=== PATIENT | male | born 1985 | race Caucasian/White ===

== ENCOUNTER 2017-02-25 09:47 | Emergency (ER) | payer OTHER ==
[~2017-02-25] VITALS: Ht 167.6 cm; Wt 49.9 kg
[2017-02-25] MEDS ORDERED: ONDA4TAB6 SL (10:21)
[2017-02-25] MEDS ORDERED: OXYC15TA76 PO (10:21)
[2017-02-25] MEDS ORDERED: NS 1,000 ML IV ONE (10:45)
[2017-02-25] MEDS ORDERED: MORPHINE 4 MG/ML 1ML SYRINGE IV ONE (10:45)
[2017-02-25] MEDS ORDERED: ONDANSETRON 4MG/2ML VIAL (J2405) IV ONE (10:45)
[2017-02-25] MEDS ORDERED: GASTROGRAFIN SOLUTION 30ML (Q9963) PO ONE ×2 (11:00→11:30)
[2017-02-25 11:08] LABS: BASO % 0.3 % (0.0-1.0); EOS # 0.1 K/mm3 (0.0-0.50); LARGE UNSTAINED CELL # 0.1 K/mm3 (0.0-0.4); LARGE UNSTAINED CELL % 1.3 % (0.0-4.0); LYMPH # 2.1 K/mm3 (1.5-4.5); LYMPH % 20.5 % (24.0-44.0); MEAN CORPUSCULAR HEMOGLOBIN 31.2 pg (27.0-33.0); MEAN CORPUSCULAR HGB CONC 33.3 g/dl (32.0-36.5); MEAN CORPUSCULAR VOLUME 93.7 fl (80.0-96.0); MONO # 0.5 K/mm3 (0.0-0.8); MONO % 4.8 % (0.0-5.0); NEUTROPHILS # 7.2 K/mm3 (1.8-7.7); NEUTROPHILS % 72.1 % (36.0-66.0); PLATELET COUNT, AUTOMATED 171 k/mm3 (150-450); RED CELL DISTRIBUTION WIDTH 11.9 % (11.5-14.5)
[2017-02-25 11:18] LABS: ALBUMIN 3.6 GM/DL (3.2-5.2); ALBUMIN/GLOBULIN RATIO 1.13 (1.00-1.93); ALKALINE PHOSPHATASE 61 U/L (45-117); ALT/SGPT 15 U/L (12-78); AMYLASE 189 U/L (25-115); ANION GAP 5 MEQ/L (8-16); AST/SGOT 10 U/L (15-37); BILIRUBIN,DIRECT 0.1 MG/DL (0.0-0.2); BILIRUBIN,TOTAL 0.6 MG/DL (0.2-1.0); BLOOD UREA NITROGEN 10 MG/DL (7-18); CALCIUM LEVEL 8.8 MG/DL (8.5-10.1); CARBON DIOXIDE LEVEL 28 MEQ/L (21-32); CHLORIDE LEVEL 110 MEQ/L (98-107); CREATININE FOR GFR 1.09 MG/DL (0.70-1.30); GLOMERULAR FILTRATION RATE > 60.0 (>60); GLUCOSE, FASTING 82 MG/DL (70-105); POTASSIUM SERUM 4.1 MEQ/L (3.5-5.1); SODIUM LEVEL 143 MEQ/L (136-145); TOTAL PROTEIN 6.8 GM/DL (6.4-8.2)
[2017-02-25] MEDS ORDERED: HYDROmorphone HCL 1 MG/ML SYRINGE (J1170) IV ONE (12:15)
--- NOTE | 2017-02-25 13:17 | REP ---
CT ABDOMEN AND PELVIS WITHOUT CONTRAST: CT abdomen and pelvis performed without IV contrast but with oral contrast. Sagittal and coronal reconstruction images are performed. The visualized lung bases demonstrate no infiltrate. The liver, gallbladder, spleen, adrenals and pancreas are grossly unremarkable. Two tiny brenton like calcifications are seen in the left renal collecting system. There is no hydroureteronephrosis bilaterally. No bladder calculi are seen. There is no abdominal aortic aneurysm. No gross adenopathy is seen. No gross bowel wall thickening is seen. I do not see evidence of free air or free fluid. The urinary bladder is grossly unremarkable. IMPRESSION: Two tiny left intrarenal stones. No ureteral stones seen. No hydronephrosis. No evidence of appendicitis. No free air or free fluid. Signed by Marcos Mata MD 02/25/2017 07:49 P
[2017-02-25 13:31] VITALS: BP 97/62
--- NOTE | 2017-02-25 13:32 | ED PDOC ---
Post-Departure Follow-Up SPOKE WITH PT AND FAMILY REGARDING LAB/CT RESULTS. ADVISED LIKELY ACUTE PANCREATITIS AND CAN BE TREATED 2 WAYS. ADVISED SOME PT'S REQUIRE ADMISSION FOR IV FLUIDS AND NPO, OR PT COULD GO HOME ON CLEAR LIQUID DIET WITH PAIN/NAUSEA MEDS. PT AGREED TO BE SENT HOME AND UNDERSTANDS HE NEEDS TO BE ON A CLEAR LIQUID DIET FOR THE NEXT 2-3 DAYS, THEN MOVE TO A BRAT DIET FOR ANOTHER COUPLE DAYS. PT AND AGREE TO THIS PLAN AT THIS TIME AND VOICE UNDERSTANDING. PT STATES HE WILL RETURN TO THE ER IF SYMPTOMS ARE WORSENING. KAYLIE MOSLEY PA-C February 25, 2017 13:32
[2017-02-25] MEDS ORDERED: PERC5TAB6 PO (13:34)
[2017-02-25] MEDS ORDERED: ZOFR4TAB3 PO (13:34)
== END 2017-02-25 13:49 | disposition home or self-care (01) ==
LOC: M ED 10:44
DX: K85.90 Acute pancreatitis without necrosis or infection, unspecified (principal); N20.0 Calculus of kidney; Z79.891 Long term (current) use of opiate analgesic; Z79.899 Other long term (current) drug therapy; Z88.2 Allergy status to sulfonamides; Z88.8 Allergy status to other drugs, medicaments and biological substances; F17.200 Nicotine dependence, unspecified, uncomplicated; Z96.0 Presence of urogenital implants

== ENCOUNTER → 2019-04-08 | Outpatient (CLI) | payer OTHER ==
[~2019-04-08] MED LIST: ONDA4TAB6 SL; OXYC15TA76 PO; PERC5TAB12 PO; ZOFR4TAB14 PO
--- NOTE | 2019-04-08 12:09 | REP ---
Right hand four views: There are no comparisons. There is a fifth digit metacarpal stabilization plate. The metallic plate and screws are intact. There is no evidence of plate fracture. The fifth digit metacarpal is unremarkable. There is no fracture or dislocation. The fracture presumably stabilized by the metallic plate has healed in satisfactory position alignment. There are no calcifications or foreign bodies. Mineralization and joint spaces are normal. Impression: Fifth digit metacarpal stabilization plate without complication. Otherwise, negative right hand. Electronically Signed by Marcos Montoya MD 04/08/2019 12:00 P
== END ==
LOC: M LRY 11:12
PROVIDERS: ATTEND Physician Assistant Medical
DX: Z96.89 Presence of other specified functional implants (principal)

== ENCOUNTER → 2020-04-21 | Outpatient (REF) | payer OTHER ==
[~2020-04-21] MED LIST changes: +OXYC-1 PO; -OXYC15TA76 PO
== END ==
LOC: M LAB REF 10:46
PROVIDERS: ATTEND Dermatology
DX: Q82.5 Congenital non-neoplastic nevus (principal)

== ENCOUNTER → 2022-09-20 | Outpatient (CLI) | payer OTHER ==
[~2022-09-20] VITALS: Ht 167.6 cm; Wt 47.9 kg
[~2022-09-20] MED LIST changes: +ACYC1TAB PO; +FLON1SPR; +LEVO1TAB39 PO; +LORA-674 PO; +METH-1177 PO; +METH5TA PO; +NOXA1TAB PO; +OXYC10TA12 PO; +OXYC20TA2 PO; +PROA1AER2 INH; +[UNRECOGNIZED DRUG - CODE] PO
[2022-09-20 15:00] VITALS: BP 116/75
== END ==
LOC: M PAL 14:06
PROVIDERS: ATTEND Nurse Practitioner Adult Health
DX: C92.00 Acute myeloblastic leukemia, not having achieved remission (principal); Q87.19 Other congenital malformation syndromes predominantly associated with short stature; F90.9 Attention-deficit hyperactivity disorder, unspecified type; F41.9 Anxiety disorder, unspecified; F32.A Depression, unspecified; N20.9 Urinary calculus, unspecified; Z51.5 Encounter for palliative care; Z88.2 Allergy status to sulfonamides; Z88.8 Allergy status to other drugs, medicaments and biological substances; Z79.891 Long term (current) use of opiate analgesic; Z79.899 Other long term (current) drug therapy; Z79.51 Long term (current) use of inhaled steroids; G89.3 Neoplasm related pain (acute) (chronic); R53.83 Other fatigue; G47.00 Insomnia, unspecified; R63.0 Anorexia

== ENCOUNTER → 2022-09-21 | Outpatient (CLI) | payer OTHER ==
[~2022-09-21] MED LIST changes: -METH-1177 PO
== END ==
LOC: M LAB 11:03
PROVIDERS: ATTEND Nurse Practitioner
DX: Z01.83 Encounter for blood typing (principal)

== ENCOUNTER 2022-09-22 08:43 | Outpatient (CLI) | payer OTHER ==
[~2022-09-22] VITALS: Ht 167.6 cm; Wt 50.0 kg
[2022-09-22 09:02] VITALS: BP 115/62
[2022-09-22 09:22] VITALS: BP 115/62
[2022-09-22 09:45] VITALS: BP 101/57
[2022-09-22 10:45] VITALS: BP 102/57
[2022-09-22 11:30] VITALS: BP 110/63
[2022-09-22 12:55] VITALS: BP 108/62
== END 2022-09-22 12:55 | disposition home or self-care (01) ==
LOC: M INFU 08:43
PROVIDERS: ATTEND Nurse Practitioner
DX: C92.00 Acute myeloblastic leukemia, not having achieved remission (principal); Z88.2 Allergy status to sulfonamides; Z88.6 Allergy status to analgesic agent
CPT/HCPCS: 36430; P9034; P9040

== ENCOUNTER 2022-09-26 08:53 | Outpatient (CLI) | payer OTHER ==
[~2022-09-26] VITALS: Ht 167.6 cm; Wt 50.0 kg
[2022-09-26] VITALS (7 sets, daily range): BP systolic 99–118; BP diastolic 46–67
[2022-09-26 10:35] LABS: HEMATOCRIT 21.9 % (42.0-52.0); HEMOGLOBIN 7.8 g/dl (13.5-17.5); MEAN CORPUSCULAR HEMOGLOBIN 30.7 pg (27.0-33.0); MEAN CORPUSCULAR HGB CONC 35.6 g/dl (32.0-36.5); MEAN CORPUSCULAR VOLUME 86.2 fl (80.0-96.0); RED BLOOD COUNT 2.54 10^6/uL (4.30-6.10)
[2022-09-26 11:01] LABS: WHITE BLOOD COUNT 0.4 10^3/uL (4.0-10.0)
[2022-09-26 11:02] LABS: PLATELET COUNT, AUTOMATED 7 10^3/uL (150-450)
[2022-09-27] MEDS ORDERED: METH-1177 PO (11:46)
== END 2022-09-26 15:25 | disposition home or self-care (01) ==
LOC: M INFU 08:53
PROVIDERS: ATTEND Nurse Practitioner
DX: C92.00 Acute myeloblastic leukemia, not having achieved remission (principal); Z88.2 Allergy status to sulfonamides; Z88.6 Allergy status to analgesic agent
CPT/HCPCS: 36430; 85027; 85049; 85055; 86850; 86900; 86901; 86920; P9034; P9040

== ENCOUNTER → 2022-09-27 | Outpatient (CLI) | payer OTHER ==
[~2022-09-27] VITALS: Ht 167.6 cm; Wt 47.9 kg
[~2022-09-27] MED LIST changes: +METH-1177 PO
[2022-09-27 11:28] VITALS: BP 117/71
== END ==
LOC: M PAL 11:07
PROVIDERS: ATTEND Nurse Practitioner Adult Health
DX: C92.00 Acute myeloblastic leukemia, not having achieved remission (principal); Q87.19 Other congenital malformation syndromes predominantly associated with short stature; F90.9 Attention-deficit hyperactivity disorder, unspecified type; F41.9 Anxiety disorder, unspecified; F32.A Depression, unspecified; Z51.5 Encounter for palliative care; Z88.2 Allergy status to sulfonamides; Z88.8 Allergy status to other drugs, medicaments and biological substances; Z79.891 Long term (current) use of opiate analgesic; Z79.899 Other long term (current) drug therapy; Z79.51 Long term (current) use of inhaled steroids; G89.3 Neoplasm related pain (acute) (chronic); R53.83 Other fatigue; G47.00 Insomnia, unspecified; R63.0 Anorexia

== ENCOUNTER 2022-10-04 10:00 | Outpatient (CLI) | payer OTHER ==
[2022-10-04] VITALS (9 sets, daily range): BP systolic 98–126; BP diastolic 49–75
[~2022-10-04] VITALS: Ht 167.6 cm; Wt 48.1 kg
[2022-10-04 10:34] LABS: LYMPH # 0.3 10^3/uL (1.5-5.0); LYMPH % 62.3 % (24.0-44.0); MEAN CORPUSCULAR HEMOGLOBIN 29.9 pg (27.0-33.0); MEAN CORPUSCULAR HGB CONC 34.7 g/dl (32.0-36.5); MEAN CORPUSCULAR VOLUME 86.3 fl (80.0-96.0); MONO % 5.7 % (2.0-8.0); RED BLOOD COUNT 2.04 10^6/uL (4.30-6.10)
[2022-10-04 10:36] LABS: NEUTROPHILS # 0.2 10^3/uL (1.5-8.5)
[2022-10-04 10:37] LABS: HEMATOCRIT 17.6 % (42.0-52.0); HEMOGLOBIN 6.1 g/dl (13.5-17.5); WHITE BLOOD COUNT 0.5 10^3/uL (4.0-10.0)
[2022-10-04 10:38] LABS: PLATELET COUNT, AUTOMATED 2 10^3/uL (150-450)
[2022-10-04 11:09] LABS: ALKALINE PHOSPHATASE 89 U/L (46-116); ALT/SGPT 20 U/L (7.0-40); AST/SGOT 28 U/L (<34); BILIRUBIN,TOTAL 1.3 MG/DL (0.3-1.2); BLOOD UREA NITROGEN 14 MG/DL (9-23); CALCIUM LEVEL 9.4 MG/DL (8.5-10.1); CARBON DIOXIDE LEVEL 30 MMOL/L (20-31); CHLORIDE LEVEL 101 MMOL/L (98-107); CREATININE FOR GFR 1.04 MG/DL (0.70-1.30); GLOMERULAR FILTRATION RATE > 60.0 (>60); GLUCOSE, FASTING 154 MG/DL (60-100); LDH LACTATE DEHYDROGENASE 147 U/L (120-246); POTASSIUM SERUM 3.7 MMOL/L (3.5-5.1); SODIUM LEVEL 139 MMOL/L (136-145); TOTAL PROTEIN 6.1 G/DL (5.7-8.2)
[2022-10-04 14:30] LABS: PLATELET COUNT, AUTOMATED 45 10^3/uL (150-450)
== END 2022-10-04 17:28 | disposition home or self-care (01) ==
LOC: M INFU 10:00
DX: C92.00 Acute myeloblastic leukemia, not having achieved remission (principal); Z88.2 Allergy status to sulfonamides
CPT/HCPCS: 36415; 36430; 80053; 83615; 85025; 85027; 85049; 85055; 86850; 86900; 86901; 86920; 87040; P9016; P9034

== ENCOUNTER → 2022-10-04 | Outpatient (CLI) | payer OTHER ==
[~2022-10-04] VITALS: Ht 167.6 cm; Wt 47.3 kg
[2022-10-04 09:08] VITALS: BP 109/68
== END ==
LOC: M PAL 09:03
PROVIDERS: ATTEND Nurse Practitioner Adult Health
DX: C92.00 Acute myeloblastic leukemia, not having achieved remission (principal); F32.A Depression, unspecified; G89.3 Neoplasm related pain (acute) (chronic); F41.9 Anxiety disorder, unspecified; Q87.19 Other congenital malformation syndromes predominantly associated with short stature; N20.0 Calculus of kidney; R53.83 Other fatigue; R11.0 Nausea; R63.0 Anorexia; R07.9 Chest pain, unspecified; Z88.2 Allergy status to sulfonamides; Z88.6 Allergy status to analgesic agent; Z79.891 Long term (current) use of opiate analgesic; Z79.899 Other long term (current) drug therapy; Z79.51 Long term (current) use of inhaled steroids; Z51.5 Encounter for palliative care; Z92.21 Personal history of antineoplastic chemotherapy; Z87.891 Personal history of nicotine dependence

== ENCOUNTER → 2022-10-06 | Outpatient (CLI) | payer OTHER ==
[2022-10-06 11:15] LABS: HEMATOCRIT 22.4 % (42.0-52.0); HEMOGLOBIN 7.5 g/dl (13.5-17.5); LYMPH # 0.3 10^3/uL (1.5-5.0); MEAN CORPUSCULAR HEMOGLOBIN 29.1 pg (27.0-33.0); MEAN CORPUSCULAR HGB CONC 33.5 g/dl (32.0-36.5); MEAN CORPUSCULAR VOLUME 86.8 fl (80.0-96.0); MONO # 0.1 10^3/uL (0.0-0.8); MONO % 14.7 % (2.0-8.0); NEUTROPHILS % 35.3 % (36.0-66.0); RED BLOOD COUNT 2.58 10^6/uL (4.30-6.10)
[2022-10-06 11:50] LABS: ALBUMIN 2.7 G/DL (3.2-5.2); ALKALINE PHOSPHATASE 87 U/L (46-116); ALT/SGPT 19 U/L (7.0-40); AST/SGOT 24 U/L (<34); BILIRUBIN,TOTAL 0.9 MG/DL (0.3-1.2); BLOOD UREA NITROGEN 8 MG/DL (9-23); CALCIUM LEVEL 8.7 MG/DL (8.5-10.1); CARBON DIOXIDE LEVEL 27 MMOL/L (20-31); CHLORIDE LEVEL 105 MMOL/L (98-107); CREATININE FOR GFR 0.88 MG/DL (0.70-1.30); GLOMERULAR FILTRATION RATE > 60.0 (>60); GLUCOSE, FASTING 80 MG/DL (60-100); POTASSIUM SERUM 3.5 MMOL/L (3.5-5.1); SODIUM LEVEL 141 MMOL/L (136-145); TOTAL PROTEIN 5.2 G/DL (5.7-8.2)
[2022-10-06 12:04] LABS: WHITE BLOOD COUNT 0.7 10^3/uL (4.0-10.0)
[2022-10-06 12:05] LABS: NEUTROPHILS # 0.2 10^3/uL (1.5-8.5); PLATELET COUNT, AUTOMATED 20 10^3/uL (150-450)
== END ==
LOC: M LAB 10:32
PROVIDERS: ATTEND Nurse Practitioner
DX: C92.00 Acute myeloblastic leukemia, not having achieved remission (principal)

== ENCOUNTER 2022-10-07 08:35 | Outpatient (CLI) | payer OTHER ==
[2022-10-07 08:53] VITALS: BP 103/57
[2022-10-07 09:15] VITALS: BP 99/56
[2022-10-07 10:15] VITALS: BP 118/55
[2022-10-07 11:00] VITALS: BP 118/71
[2022-10-07] MEDS ORDERED: METH-1177 PO (11:20)
== END 2022-10-07 11:00 ==
LOC: M INFU 08:35
PROVIDERS: ATTEND Nurse Practitioner
DX: C91.00 Acute lymphoblastic leukemia not having achieved remission (principal); Z88.2 Allergy status to sulfonamides; Z88.6 Allergy status to analgesic agent
CPT/HCPCS: 36430; P9016

== ENCOUNTER 2022-10-14 08:40 | Outpatient (CLI) | payer OTHER ==
[~2022-10-14] VITALS: Ht 167.6 cm; Wt 48.1 kg
[2022-10-14 08:40] VITALS: BP 105/58
[2022-10-14 09:03] LABS: BASO % 0.4 % (0.0-1.0); HEMATOCRIT 29.5 % (42.0-52.0); HEMOGLOBIN 9.7 g/dl (13.5-17.5); LYMPH # 0.5 10^3/uL (1.5-5.0); LYMPH % 20.7 % (24.0-44.0); MEAN CORPUSCULAR HEMOGLOBIN 29.9 pg (27.0-33.0); MEAN CORPUSCULAR HGB CONC 32.9 g/dl (32.0-36.5); MONO # 0.9 10^3/uL (0.0-0.8); MONO % 37.5 % (2.0-8.0); NEUTROPHILS % 40.2 % (36.0-66.0); RED BLOOD COUNT 3.24 10^6/uL (4.30-6.10); WHITE BLOOD COUNT 2.5 10^3/uL (4.0-10.0)
[2022-10-14 09:05] LABS: PLATELET COUNT, AUTOMATED 34 10^3/uL (150-450)
[2022-10-14 09:24] LABS: LDH LACTATE DEHYDROGENASE 213 U/L (120-246)
[2022-10-14 09:25] LABS: ALKALINE PHOSPHATASE 107 U/L (46-116); ALT/SGPT 25 U/L (7.0-40); AST/SGOT 27 U/L (<34); BILIRUBIN,TOTAL 0.5 MG/DL (0.3-1.2); BLOOD UREA NITROGEN 6 MG/DL (9-23); CALCIUM LEVEL 8.5 MG/DL (8.5-10.1); CARBON DIOXIDE LEVEL 28 MMOL/L (20-31); CHLORIDE LEVEL 105 MMOL/L (98-107); CREATININE FOR GFR 0.83 MG/DL (0.70-1.30); GLOMERULAR FILTRATION RATE > 60.0 (>60); GLUCOSE, FASTING 100 MG/DL (60-100); POTASSIUM SERUM 4.1 MMOL/L (3.5-5.1); SODIUM LEVEL 141 MMOL/L (136-145); TOTAL PROTEIN 5.8 G/DL (5.7-8.2)
== END 2022-10-14 09:10 | disposition home or self-care (01) ==
LOC: M INFU 08:40
PROVIDERS: ATTEND Nurse Practitioner
DX: C92.50 Acute myelomonocytic leukemia, not having achieved remission (principal); Z88.2 Allergy status to sulfonamides; Z88.8 Allergy status to other drugs, medicaments and biological substances

== ENCOUNTER → 2022-10-19 | Outpatient (CLI) | payer OTHER | LOC: M PAL 08:53 | PROVIDERS: ATTEND Nurse Practitioner Family | DX: C92.00 Acute myeloblastic leukemia, not having achieved remission (principal); F32.A Depression, unspecified; G89.3 Neoplasm related pain (acute) (chronic); Q87.19 Other congenital malformation syndromes predominantly associated with short stature; Z51.5 Encounter for palliative care; F41.9 Anxiety disorder, unspecified; F90.9 Attention-deficit hyperactivity disorder, unspecified type; F17.290 Nicotine dependence, other tobacco product, uncomplicated; Z79.891 Long term (current) use of opiate analgesic; Z79.899 Other long term (current) drug therapy ==

== ENCOUNTER 2022-11-15 11:15 | Outpatient (CLI) | payer OTHER ==
[~2022-11-15 11:15] MED LIST changes: +AMPH1TAB2
[2022-11-15 11:41] LABS: HEMATOCRIT 29.2 % (42.0-52.0); HEMOGLOBIN 10.3 g/dl (13.5-17.5); MEAN CORPUSCULAR HEMOGLOBIN 32.1 pg (27.0-33.0); MEAN CORPUSCULAR HGB CONC 35.3 g/dl (32.0-36.5); RED BLOOD COUNT 3.21 10^6/uL (4.30-6.10); WHITE BLOOD COUNT 2.5 10^3/uL (4.0-10.0)
[2022-11-15 11:53] LABS: PLATELET COUNT, AUTOMATED 31 10^3/uL (150-450)
[2022-11-15 12:00] VITALS: BP 105/66
[2022-11-15 12:01] LABS: LDH LACTATE DEHYDROGENASE 123 U/L (120-246)
[2022-11-15 12:02] LABS: ALBUMIN 3.2 G/DL (3.2-5.2); ALKALINE PHOSPHATASE 73 U/L (46-116); ALT/SGPT 17 U/L (7.0-40); AST/SGOT 18 U/L (<34); BILIRUBIN,TOTAL 0.8 MG/DL (0.3-1.2); BLOOD UREA NITROGEN 12 MG/DL (9-23); CALCIUM LEVEL 9.2 MG/DL (8.5-10.1); CARBON DIOXIDE LEVEL 31 MMOL/L (20-31); CHLORIDE LEVEL 104 MMOL/L (98-107); CREATININE FOR GFR 0.91 MG/DL (0.70-1.30); GLOMERULAR FILTRATION RATE > 60.0 (>60); GLUCOSE, FASTING 105 MG/DL (60-100); POTASSIUM SERUM 4.1 MMOL/L (3.5-5.1); SODIUM LEVEL 140 MMOL/L (136-145); TOTAL PROTEIN 6.2 G/DL (5.7-8.2)
[2022-11-15 12:29] LABS: LYMPHOCYTES 16 % (16-44); NEUTROPHILS 84 % (28-66)
[2022-11-15 12:31] LABS: PLATELET ESTIMATE MARKED DECREASE (NORMAL)
== END 2022-11-15 12:00 | disposition home or self-care (01) ==
LOC: M INFU 11:15
PROVIDERS: ATTEND Nurse Practitioner
DX: C91.00 Acute lymphoblastic leukemia not having achieved remission (principal); Z88.2 Allergy status to sulfonamides; Z88.8 Allergy status to other drugs, medicaments and biological substances

== ENCOUNTER 2022-11-19 23:13 | Emergency (ER) | payer OTHER ==
[~2022-11-19] VITALS: Ht 165.1 cm; Wt 49.2 kg
[2022-11-19 23:59] LABS: HEMATOCRIT 26.1 % (42.0-52.0); HEMOGLOBIN 9.2 g/dl (13.5-17.5); LYMPH # 0.5 10^3/uL (1.5-5.0); LYMPH % 68.8 % (24.0-44.0); MEAN CORPUSCULAR HEMOGLOBIN 31.6 pg (27.0-33.0); MEAN CORPUSCULAR HGB CONC 35.2 g/dl (32.0-36.5); MEAN CORPUSCULAR VOLUME 89.7 fl (80.0-96.0); MONO % 1.3 % (2.0-8.0); NEUTROPHILS % 29.9 % (36.0-66.0); RED BLOOD COUNT 2.91 10^6/uL (4.30-6.10)
[2022-11-20 00:09] LABS: INR 0.95; PROTHROMBIN TIME 12.9 SECONDS (12.5-14.5)
[2022-11-20 00:10] LABS: PARTIAL THROMBOPLASTIN TIME 30.3 SECONDS (24.8-34.2)
[2022-11-20 00:19] LABS: BLOOD UREA NITROGEN 15 MG/DL (9-23); CALCIUM LEVEL 9.5 MG/DL (8.5-10.1); CARBON DIOXIDE LEVEL 30 MMOL/L (20-31); CHLORIDE LEVEL 101 MMOL/L (98-107); GLOMERULAR FILTRATION RATE > 60.0 (>60); GLUCOSE, FASTING 118 MG/DL (60-100); NEUTROPHILS # 0.2 10^3/uL (1.5-8.5); PLATELET COUNT, AUTOMATED 1 10^3/uL (150-450); POTASSIUM SERUM 3.9 MMOL/L (3.5-5.1); SODIUM LEVEL 139 MMOL/L (136-145); WHITE BLOOD COUNT 0.8 10^3/uL (4.0-10.0)
[2022-11-20 01:48] LABS: RSV AMPLIFICATION NEGATIVE (NEGATIVE)
[2022-11-20 02:06] VITALS: BP 107/59
[2022-11-20 02:16] VITALS: BP 104/78
[2022-11-20 02:38] VITALS: BP 104/67
[2022-11-20] MEDS ORDERED: METHADONE 10MG TAB PO ONE (03:10)
[2022-11-20 03:55] LABS: LYMPH # 0.4 10^3/uL (1.5-5.0); LYMPH % 70.6 % (24.0-44.0); MEAN CORPUSCULAR HEMOGLOBIN 31.5 pg (27.0-33.0); MEAN CORPUSCULAR HGB CONC 35.5 g/dl (32.0-36.5); MEAN CORPUSCULAR VOLUME 88.7 fl (80.0-96.0); NEUTROPHILS % 27.4 % (36.0-66.0); RED BLOOD COUNT 2.22 10^6/uL (4.30-6.10)
[2022-11-20 04:25] LABS: WHITE BLOOD COUNT 0.5 10^3/uL (4.0-10.0)
[2022-11-20 04:26] LABS: NEUTROPHILS # 0.1 10^3/uL (1.5-8.5); PLATELET COUNT, AUTOMATED 27 10^3/uL (150-450)
[2022-11-20 04:27] LABS: HEMATOCRIT 19.7 % (42.0-52.0)
[2022-11-20] MEDS ORDERED: NS 1,000 ML IV SCH (05:15)
[2022-11-20 06:48] VITALS: BP 119/56
== END 2022-11-20 07:04 | disposition short-term general hospital (02) ==
LOC: M ED 23:13
DX: D61.810 Antineoplastic chemotherapy induced pancytopenia (principal); C91.00 Acute lymphoblastic leukemia not having achieved remission; Z87.442 Personal history of urinary calculi; Z87.891 Personal history of nicotine dependence; Z88.2 Allergy status to sulfonamides; Z88.8 Allergy status to other drugs, medicaments and biological substances; Z79.51 Long term (current) use of inhaled steroids; Z79.891 Long term (current) use of opiate analgesic; Z79.899 Other long term (current) drug therapy
CPT/HCPCS: 36430; 80048; 85025; 85049; 85055; 85610; 85730; 86850; 86900; 86901; 87631; 96360; 96361; 99285; P9034; S0109

== ENCOUNTER → 2022-12-02 | Outpatient (CLI) | payer OTHER ==
[2022-12-02 11:44] LABS: HEMATOCRIT 23.1 % (42.0-52.0); LYMPH # 0.6 10^3/uL (1.5-5.0); LYMPH % 41.8 % (24.0-44.0); MEAN CORPUSCULAR HEMOGLOBIN 30.9 pg (27.0-33.0); MEAN CORPUSCULAR HGB CONC 34.6 g/dl (32.0-36.5); MEAN CORPUSCULAR VOLUME 89.2 fl (80.0-96.0); MONO # 0.5 10^3/uL (0.0-0.8); MONO % 32.2 % (2.0-8.0); RED BLOOD COUNT 2.59 10^6/uL (4.30-6.10); WHITE BLOOD COUNT 1.5 10^3/uL (4.0-10.0)
[2022-12-02 11:48] LABS: PLATELET COUNT, AUTOMATED 21 10^3/uL (150-450)
[2022-12-02 11:49] LABS: NEUTROPHILS # 0.4 10^3/uL (1.5-8.5)
[2022-12-02 12:10] LABS: LDH LACTATE DEHYDROGENASE 121 U/L (120-246)
[2022-12-02 12:11] LABS: ALBUMIN 3.2 G/DL (3.2-5.2); ALKALINE PHOSPHATASE 84 U/L (46-116); ALT/SGPT 20 U/L (7.0-40); AST/SGOT 15 U/L (<34); BILIRUBIN,TOTAL 0.5 MG/DL (0.3-1.2); BLOOD UREA NITROGEN 7 MG/DL (9-23); CALCIUM LEVEL 9.3 MG/DL (8.5-10.1); CARBON DIOXIDE LEVEL 34 MMOL/L (20-31); CHLORIDE LEVEL 105 MMOL/L (98-107); CREATININE FOR GFR 0.98 MG/DL (0.70-1.30); GLOMERULAR FILTRATION RATE > 60.0 (>60); GLUCOSE, FASTING 104 MG/DL (60-100); POTASSIUM SERUM 3.9 MMOL/L (3.5-5.1); SODIUM LEVEL 143 MMOL/L (136-145); TOTAL PROTEIN 5.9 G/DL (5.7-8.2)
== END ==
LOC: M LAB 10:48
PROVIDERS: ATTEND Nurse Practitioner
DX: C91.00 Acute lymphoblastic leukemia not having achieved remission (principal)

== ENCOUNTER → 2022-12-06 | Outpatient (CLI) | payer OTHER ==
[2022-12-06 13:11] LABS: HEMATOCRIT 30.1 % (42.0-52.0); HEMOGLOBIN 10.4 g/dl (13.5-17.5); LYMPH # 0.6 10^3/uL (1.5-5.0); LYMPH % 25.8 % (24.0-44.0); MEAN CORPUSCULAR HEMOGLOBIN 30.5 pg (27.0-33.0); MEAN CORPUSCULAR HGB CONC 34.6 g/dl (32.0-36.5); MEAN CORPUSCULAR VOLUME 88.3 fl (80.0-96.0); MONO # 0.8 10^3/uL (0.0-0.8); MONO % 36.7 % (2.0-8.0); NEUTROPHILS # 0.8 10^3/uL (1.5-8.5); NEUTROPHILS % 37.5 % (36.0-66.0); PLATELET COUNT, AUTOMATED 34 10^3/uL (150-450); RED BLOOD COUNT 3.41 10^6/uL (4.30-6.10); WHITE BLOOD COUNT 2.2 10^3/uL (4.0-10.0)
[2022-12-06 13:46] LABS: LDH LACTATE DEHYDROGENASE 147 U/L (120-246)
[2022-12-06 14:07] LABS: ALBUMIN 3.4 G/DL (3.2-5.2); ALKALINE PHOSPHATASE 92 U/L (46-116); ALT/SGPT 26 U/L (7.0-40); AST/SGOT 22 U/L (<34); BILIRUBIN,TOTAL 0.7 MG/DL (0.3-1.2); BLOOD UREA NITROGEN 7 MG/DL (9-23); CALCIUM LEVEL 9.5 MG/DL (8.5-10.1); CARBON DIOXIDE LEVEL 31 MMOL/L (20-31); CHLORIDE LEVEL 103 MMOL/L (98-107); GLUCOSE, FASTING 114 MG/DL (60-100); POTASSIUM SERUM 3.8 MMOL/L (3.5-5.1); SODIUM LEVEL 141 MMOL/L (136-145); TOTAL PROTEIN 6.4 G/DL (5.7-8.2)
[2022-12-06 19:48] LABS: CREATININE FOR GFR 0.93 MG/DL (0.70-1.30); GLOMERULAR FILTRATION RATE > 60.0 (>60)
== END ==
LOC: M INFU 12:41
PROVIDERS: ATTEND Nurse Practitioner
DX: C91.00 Acute lymphoblastic leukemia not having achieved remission (principal); Z88.2 Allergy status to sulfonamides; Z88.8 Allergy status to other drugs, medicaments and biological substances

== ENCOUNTER → 2022-12-08 | Outpatient (CLI) | payer OTHER | LOC: M LAB 11:49 | PROVIDERS: ATTEND Nurse Practitioner | DX: Z01.812 Encounter for preprocedural laboratory examination (principal) ==

== ENCOUNTER 2022-12-09 11:26 | Outpatient (CLI) | payer OTHER ==
[~2022-12-09] VITALS: Ht 167.6 cm; Wt 50.0 kg
[2022-12-09 11:30] VITALS: BP 124/68
[2022-12-09 12:23] LABS: HEMATOCRIT 26.5 % (42.0-52.0); LYMPH # 0.5 10^3/uL (1.5-5.0); MEAN CORPUSCULAR HEMOGLOBIN 30.9 pg (27.0-33.0); MEAN CORPUSCULAR VOLUME 91.1 fl (80.0-96.0); MONO # 0.8 10^3/uL (0.0-0.8); MONO % 38.8 % (2.0-8.0); NEUTROPHILS % 34.7 % (36.0-66.0); RED BLOOD COUNT 2.91 10^6/uL (4.30-6.10)
[2022-12-09 12:25] LABS: NEUTROPHILS # 0.7 10^3/uL (1.5-8.5); PLATELET COUNT, AUTOMATED 23 10^3/uL (150-450)
[2022-12-09 13:14] LABS: ALBUMIN 3.1 G/DL (3.2-5.2); ALKALINE PHOSPHATASE 91 U/L (46-116); ALT/SGPT 24 U/L (7.0-40); AST/SGOT 20 U/L (<34); BILIRUBIN,TOTAL 0.5 MG/DL (0.3-1.2); BLOOD UREA NITROGEN 11 MG/DL (9-23); CALCIUM LEVEL 9.3 MG/DL (8.5-10.1); CARBON DIOXIDE LEVEL 28 MMOL/L (20-31); CHLORIDE LEVEL 106 MMOL/L (98-107); CREATININE FOR GFR 0.95 MG/DL (0.70-1.30); GLOMERULAR FILTRATION RATE > 60.0 (>60); GLUCOSE, FASTING 104 MG/DL (60-100); SODIUM LEVEL 142 MMOL/L (136-145); TOTAL PROTEIN 5.9 G/DL (5.7-8.2)
[2022-12-09 14:45] VITALS: BP 95/50
[2022-12-09 15:55] VITALS: BP 117/59
[2022-12-09 16:05] VITALS: BP 117/59
== END 2022-12-09 16:05 | disposition home or self-care (01) ==
LOC: M INFU 11:26
PROVIDERS: ATTEND Nurse Practitioner
DX: C92.50 Acute myelomonocytic leukemia, not having achieved remission (principal); Z88.2 Allergy status to sulfonamides; Z88.8 Allergy status to other drugs, medicaments and biological substances
CPT/HCPCS: 36430; 36592; 80053; 83615; 85025; 85049; 85055; P9034

== ENCOUNTER 2022-12-20 11:10 | Outpatient (CLI) | payer OTHER ==
[~2022-12-20] VITALS: Ht 167.6 cm; Wt 50.0 kg
[2022-12-20 11:15] VITALS: BP 131/68
[2022-12-20 11:46] LABS: BASO % 0.4 % (0.0-1.0); HEMOGLOBIN 11.4 g/dl (13.5-17.5); LYMPH # 0.7 10^3/uL (1.5-5.0); LYMPH % 27.5 % (24.0-44.0); MEAN CORPUSCULAR HEMOGLOBIN 32.4 pg (27.0-33.0); MEAN CORPUSCULAR HGB CONC 33.5 g/dl (32.0-36.5); MEAN CORPUSCULAR VOLUME 96.6 fl (80.0-96.0); MONO # 0.8 10^3/uL (0.0-0.8); MONO % 28.3 % (2.0-8.0); NEUTROPHILS # 1.2 10^3/uL (1.5-8.5); NEUTROPHILS % 43.1 % (36.0-66.0); RED BLOOD COUNT 3.52 10^6/uL (4.30-6.10); WHITE BLOOD COUNT 2.7 10^3/uL (4.0-10.0)
[2022-12-20 11:47] LABS: PLATELET COUNT, AUTOMATED 42 10^3/uL (150-450)
[2022-12-20 12:22] LABS: LDH LACTATE DEHYDROGENASE 177 U/L (120-246)
[2022-12-20 12:26] LABS: ALBUMIN 3.7 G/DL (3.2-5.2); ALKALINE PHOSPHATASE 87 U/L (46-116); ALT/SGPT 14 U/L (7.0-40); AST/SGOT 14 U/L (<34); BILIRUBIN,TOTAL 0.6 MG/DL (0.3-1.2); BLOOD UREA NITROGEN 15 MG/DL (9-23); CALCIUM LEVEL 9.1 MG/DL (8.5-10.1); CARBON DIOXIDE LEVEL 28 MMOL/L (20-31); CHLORIDE LEVEL 101 MMOL/L (98-107); CREATININE FOR GFR 0.89 MG/DL (0.70-1.30); GLOMERULAR FILTRATION RATE > 60.0 (>60); GLUCOSE, FASTING 105 MG/DL (60-100); POTASSIUM SERUM 3.8 MMOL/L (3.5-5.1); SODIUM LEVEL 139 MMOL/L (136-145); TOTAL PROTEIN 6.6 G/DL (5.7-8.2)
[2022-12-21] MEDS ORDERED: OXYC20TA2 PO (08:24)
[2022-12-21] MEDS ORDERED: METH-1177 PO (08:24)
== END 2022-12-20 11:55 | disposition home or self-care (01) ==
LOC: M INFU 11:10
PROVIDERS: ATTEND Nurse Practitioner
DX: C91.00 Acute lymphoblastic leukemia not having achieved remission (principal); Z88.2 Allergy status to sulfonamides

== ENCOUNTER → 2022-12-21 | Outpatient (CLI) | payer OTHER | LOC: M PAL 07:41 | PROVIDERS: ATTEND Nurse Practitioner Family | DX: C91.00 Acute lymphoblastic leukemia not having achieved remission (principal); F32.A Depression, unspecified; G89.3 Neoplasm related pain (acute) (chronic); Z51.5 Encounter for palliative care; F41.9 Anxiety disorder, unspecified; Q87.19 Other congenital malformation syndromes predominantly associated with short stature; F90.9 Attention-deficit hyperactivity disorder, unspecified type; Z87.891 Personal history of nicotine dependence; Z79.891 Long term (current) use of opiate analgesic; Z79.899 Other long term (current) drug therapy ==

== ENCOUNTER → 2023-01-03 | Outpatient (CLI) | payer OTHER | LOC: M INFU 12:00 | PROVIDERS: ATTEND Nurse Practitioner | DX: C92.00 Acute myeloblastic leukemia, not having achieved remission (principal); Z88.2 Allergy status to sulfonamides ==

== ENCOUNTER → 2023-03-30 | Outpatient (CLI) | payer OTHER ==
[~2023-03-30] MED LIST changes: +ATOV5SUS; +CLOT1CRE27; +FAMO20TA PO; +LOPE2CAP; +PENI500T; +PROTPAK PO; +URSO300C3; +VITA500045 PO; +ZINC220C8 PO
[2023-03-30 14:10] VITALS: BP 109/64; TEMP 97.6; O2SAT 100
== END ==
LOC: M PAL 13:37
PROVIDERS: ATTEND Nurse Practitioner Adult Health
DX: C91.00 Acute lymphoblastic leukemia not having achieved remission (principal); Q87.19 Other congenital malformation syndromes predominantly associated with short stature; G89.3 Neoplasm related pain (acute) (chronic); R53.83 Other fatigue; F32.A Depression, unspecified; F41.9 Anxiety disorder, unspecified; F90.9 Attention-deficit hyperactivity disorder, unspecified type; N20.0 Calculus of kidney; Z51.5 Encounter for palliative care; Z94.84 Stem cells transplant status; F17.299 Nicotine dependence, other tobacco product, with unspecified nicotine-induced disorders; Z79.891 Long term (current) use of opiate analgesic; Z88.2 Allergy status to sulfonamides; Z88.8 Allergy status to other drugs, medicaments and biological substances; Z87.891 Personal history of nicotine dependence; Z79.899 Other long term (current) drug therapy

== ENCOUNTER 2023-08-27 19:01 | Inpatient (IN) | payer OTHER ==
[~2023-08-27] VITALS: Ht 165.1 cm; Wt 40.6 kg
[~2023-08-27 19:01] MED LIST changes: +LORA-1041 PO; -LORA-674 PO; -URSO300C3; +URSO300C3 PO
[2023-08-27] MEDS ORDERED: MORPHINE 4 MG/ML 1ML VIAL IV ONE (20:35)
[2023-08-27] MEDS ORDERED: SODIUM CHLORIDE 0.9% INJ 10 ML SYR IV PRN (20:35)
[2023-08-27] MEDS ORDERED: ONDANSETRON 4MG 2ML VIAL IV ONE (20:35)
[2023-08-27] MEDS ORDERED: NS 1,000 ML IV ONE ×2 (20:35→23:40)
[2023-08-27 21:16] LABS: HEMATOCRIT 29.7 % (42.0-52.0); HEMOGLOBIN 9.6 g/dl (13.5-17.5); MEAN CORPUSCULAR HEMOGLOBIN 30.5 pg (27.0-33.0); MEAN CORPUSCULAR HGB CONC 32.3 g/dl (32.0-36.5); MEAN CORPUSCULAR VOLUME 94.3 fl (80.0-96.0); RED BLOOD COUNT 3.15 10^6/uL (4.30-6.10); WHITE BLOOD COUNT 3.4 10^3/uL (4.0-10.0)
[2023-08-27 21:43] LABS: LIPASE 14 U/L (12-53)
[2023-08-27 21:45] LABS: ALBUMIN 1.3 G/DL (3.2-5.2); ALKALINE PHOSPHATASE 357 U/L (46-116); ALT/SGPT 39 U/L (7.0-40); AST/SGOT 25 U/L (<34); BILIRUBIN,DIRECT 0.4 MG/DL (<0.4); BILIRUBIN,TOTAL 0.6 MG/DL (0.3-1.2); BLOOD UREA NITROGEN 35 MG/DL (9-23); CALCIUM LEVEL 7.7 MG/DL (8.5-10.1); CARBON DIOXIDE LEVEL 27 MMOL/L (20-31); CHLORIDE LEVEL 103 MMOL/L (98-107); CK-MB VALUE MASS < 1.0 NG/ML (<3.6); CREATININE FOR GFR 0.75 MG/DL (0.70-1.30); GLOMERULAR FILTRATION RATE > 60.0 (>60); GLUCOSE, FASTING 154 MG/DL (60-100); POTASSIUM SERUM 5.4 MMOL/L (3.5-5.1); SODIUM LEVEL 137 MMOL/L (136-145); TOTAL PROTEIN 4.5 G/DL (5.7-8.2)
[2023-08-27 21:47] LABS: INR 1.03; PROTHROMBIN TIME 13.2 SECONDS (12.5-14.5)
[2023-08-27 21:49] LABS: PARTIAL THROMBOPLASTIN TIME 54.6 SECONDS (24.8-34.2); PLATELET COUNT, AUTOMATED 8 10^3/uL (150-450)
[2023-08-27 21:53] LABS: ATYPICAL LYMPH 1 % (0-5); LYMPHOCYTES 18 % (16-44); MONOCYTES 2 % (0-5); NEUTROPHILS 78 % (28-66)
[2023-08-27 21:54] LABS: ANISOCYTOSIS 2+; PLATELET ESTIMATE MARKED DECREASE (NORMAL)
[2023-08-27 21:55] LABS: TOXIC VACUOLATION 2+
[2023-08-27] MEDS ORDERED: ISOVUE-370 76% 100ML VIAL As Ordered ONE (21:55)
[2023-08-27 22:04] LABS: CPK CREATINE PHOSPHOKINASE < 15 U/L (46-171)
[2023-08-28] VITALS (9 sets, daily range): BP systolic 100–120; BP diastolic 52–80; TEMP 97.6–99.1; O2SAT 96–100
[2023-08-28] MEDS ORDERED: PANT-23 PO (00:57)
[2023-08-28] MEDS ORDERED: METH-1177 PO (01:14)
[2023-08-28] MEDS ORDERED: POSA100T PO (01:14)
[2023-08-28] MEDS ORDERED: BUDE3CAP PO (01:14)
[2023-08-28] MEDS ORDERED: CEVI1CAP PO (01:14)
[2023-08-28] MEDS ORDERED: CLON0.25 PO (01:14)
[2023-08-28] MEDS ORDERED: MYRB50TA PO (01:14)
[2023-08-28] MEDS ORDERED: PARO20TA3 PO (01:14)
[2023-08-28] MEDS ORDERED: SPIR-10 PO (01:14)
[2023-08-28] MEDS ORDERED: CELE0.09 PO (01:14)
[2023-08-28] MEDS ORDERED: MIRT1TAB PO (01:14)
[2023-08-28] MEDS ORDERED: HYDR-4468 PO ×2 (01:14)
[2023-08-28] MEDS ORDERED: PENI500T PO (01:14)
[2023-08-28] MEDS ORDERED: POTA10PO PO (01:14)
[2023-08-28] MEDS ORDERED: PROTEIN PO (01:14)
[2023-08-28] MEDS ORDERED: PRED5TA PO (01:14)
[2023-08-28] MEDS ORDERED: TAMS1CAP17 PO (01:14)
[2023-08-28] MEDS ORDERED: OXYC-1 PO (01:14)
[2023-08-28] MEDS ORDERED: OXYB5TAB11 PO (01:14)
[2023-08-28] MEDS ORDERED: PROM50TA28 PO (01:14)
[2023-08-28] MEDS ORDERED: SIRO1TAB PO (01:14)
[2023-08-28] MEDS ORDERED: beclomethasone PO (01:17)
[2023-08-28] MEDS ORDERED: [UNRECOGNIZED DRUG - CODE] PO (01:17)
[2023-08-28] MEDS ORDERED: HOME MED LIST COMPLETE! XX SCH (01:20)
[2023-08-28] MEDS ORDERED: LR 1,000 ML IV SCH (01:20)
[2023-08-28] MEDS ORDERED: SODIUM CHLORIDE 0.9% INJ 10 ML SYR IV PRN (01:20)
[2023-08-28] MEDS: HYDROMORPHONE HCL 0.5 MG/ 0.5 ML SYRINGE IV PRN ×5 (01:45→20:58)
[2023-08-28] MEDS ORDERED: diphenhydrAMINE 50MG/ML VIAL IV STA (02:26)
[2023-08-28] MEDS ORDERED: clonazePAM 0.5 MG TAB PO PRN (02:35)
[2023-08-28] MEDS: oxyBUTYnin 5 MG TAB PO SCH ×3 (05:59→22:00)
[2023-08-28 06:09] LABS: HEMATOCRIT 24.4 % (42.0-52.0); HEMOGLOBIN 7.8 g/dl (13.5-17.5); MEAN CORPUSCULAR HEMOGLOBIN 30.5 pg (27.0-33.0); MEAN CORPUSCULAR VOLUME 95.3 fl (80.0-96.0); RED BLOOD COUNT 2.56 10^6/uL (4.30-6.10); WHITE BLOOD COUNT 3.5 10^3/uL (4.0-10.0)
[2023-08-28 06:16] LABS: PLATELET COUNT, AUTOMATED 27 10^3/uL (150-450)
[2023-08-28 06:30] LABS: BLOOD UREA NITROGEN 28 MG/DL (9-23); CALCIUM LEVEL 6.6 MG/DL (8.5-10.1); CARBON DIOXIDE LEVEL 26 MMOL/L (20-31); CHLORIDE LEVEL 108 MMOL/L (98-107); CREATININE FOR GFR 0.55 MG/DL (0.70-1.30); GLOMERULAR FILTRATION RATE > 60.0 (>60); GLUCOSE, FASTING 101 MG/DL (60-100); MAGNESIUM LEVEL 1.8 MG/DL (1.8-2.4); POTASSIUM SERUM 4.7 MMOL/L (3.5-5.1); SODIUM LEVEL 141 MMOL/L (136-145)
[2023-08-28 08:48] LABS: HEMATOCRIT 26.9 % (42.0-52.0); HEMOGLOBIN 8.7 g/dl (13.5-17.5)
[2023-08-28] MEDS: ONDANSETRON 4MG 2ML VIAL IV PRN ×2 (08:56→13:28)
[2023-08-28] MEDS ORDERED: PROMACTA 50 MG PO SCH (09:00)
[2023-08-28] MEDS ORDERED: ENTER DRUG NAME HERE (PATIENT'S OWN MED) PO SCH (09:00)
[2023-08-28] MEDS: SPIRONOLACTONE 12.5MG PER 1/2 TABLET PO SCH (09:00)
[2023-08-28] MEDS: predniSONE 2.5 MG TAB PO SCH (09:00)
[2023-08-28] MEDS: BUDESONIDE EC 3MG CAP (ENTOCORT EC) PO SCH (09:00)
[2023-08-28] MEDS: TAMSULOSIN 0.4 MG CAP PO SCH (09:00)
[2023-08-28] MEDS: ACYCLOVIR 200 MG CAPSULE PO SCH ×2 (09:00→21:00)
[2023-08-28] MEDS: PARoxetine 20MG TABLET PO SCH (09:00)
[2023-08-28] MEDS: METHADONE 10MG TAB PO SCH ×3 (09:00→21:00)
[2023-08-28] MEDS: PENICILLIN V POTASSIUM 500 MG TAB PO SCH ×2 (09:00→21:00)
[2023-08-28] MEDS: ursodioL 300MG CAP PO SCH ×3 (09:00→21:00)
[2023-08-28] MEDS: HYDROCORTISONE 10 MG TAB PO SCH ×2 (09:00→21:00)
[2023-08-28] MEDS ORDERED: NOXAFIL PO SCH (09:00)
[2023-08-28] MEDS ORDERED: NS 0.45% 1,000 ML IV SCH (09:55)
[2023-08-28] MEDS ORDERED: GLUCAGON INJ 1MG VIAL SC PRN (10:05)
[2023-08-28] MEDS ORDERED: DEXTROSE 50% 50ML SYRINGE IV PRN (10:05)
[2023-08-28] MEDS ORDERED: NS 0.45% 1,000 ML IV ONE (10:05)
[2023-08-28] MEDS ORDERED: GLUCOSE 4GM CHEW TABLET PO PRN (10:05)
[2023-08-28] MEDS: D5W/0.45% SODIUM CHLORIDE 1,000 ML IV SCH ×2 (11:15→22:32)
[2023-08-28] MEDS: SIROLIMUS 1 MG TAB (RAPAMUNE) PO SCH (13:00)
[2023-08-28 13:24] LABS: HEMATOCRIT 24.9 % (42.0-52.0); HEMOGLOBIN 8.1 g/dl (13.5-17.5)
[2023-08-28] MEDS ORDERED: MAG SULF 1GM/100ML (MAG RUN) 1 GM in IV 1 EA IV ONE (13:25)
[2023-08-28] MEDS: SODIUM CHLORIDE 0.9% INJ 10 ML SYR IV SCH (13:30)
[2023-08-28] MEDS: [UNRECOGNIZED DRUG - OTHER] PO SCH (21:00)
[2023-08-28] MEDS: MIRTAZAPINE 7.5MG PER 1/2 TABLET PO SCH (21:00)
[2023-08-28] MEDS: PANTOPRAZOLE 40MG TAB (PROTONIX) PO SCH (21:00)
[2023-08-28] MEDS: [UNRECOGNIZED DRUG - OTHER] PO SCH (21:00)
[2023-08-28] MEDS: CEVIMELINE 30 MG PO SCH (21:00)
[2023-08-29] VITALS (14 sets, daily range): BP systolic 104–138; BP diastolic 68–90; TEMP 97.6–98.7; O2SAT 94–99
[2023-08-29] MEDS: HYDROMORPHONE HCL 0.5 MG/ 0.5 ML SYRINGE IV PRN ×3 (00:51→18:08)
[2023-08-29] MEDS: oxyBUTYnin 5 MG TAB PO SCH ×3 (06:00→21:52)
[2023-08-29] MEDS: MIDODRINE 5 MG TAB PO SCH ×3 (08:00→15:48)
[2023-08-29] MEDS: METHADONE 10MG TAB PO SCH ×4 (08:03→21:20)
[2023-08-29] MEDS: D5W/0.45% SODIUM CHLORIDE 1,000 ML IV SCH ×3 (08:03→21:47)
[2023-08-29] MEDS: [UNRECOGNIZED DRUG - OTHER] PO SCH ×2 (09:00→21:00)
[2023-08-29] MEDS: ursodioL 300MG CAP PO SCH ×3 (09:00→21:00)
[2023-08-29] MEDS: PROMACTA 50 MG PO SCH (09:00)
[2023-08-29] MEDS: TAMSULOSIN 0.4 MG CAP PO SCH (09:00)
[2023-08-29] MEDS: [UNRECOGNIZED DRUG - OTHER] PO SCH ×4 (09:00→21:00)
[2023-08-29] MEDS ORDERED: HYDROMORPHONE HCL 0.5 MG/ 0.5 ML SYRINGE IV ONE (09:00)
[2023-08-29] MEDS: PARoxetine 20MG TABLET PO SCH (09:00)
[2023-08-29] MEDS: HYDROCORTISONE 10 MG TAB PO SCH ×2 (09:00→21:00)
[2023-08-29] MEDS: ACYCLOVIR 200 MG CAPSULE PO SCH ×2 (09:00→21:00)
[2023-08-29] MEDS: BUDESONIDE EC 3MG CAP (ENTOCORT EC) PO SCH (09:00)
[2023-08-29] MEDS: predniSONE 2.5 MG TAB PO SCH (09:00)
[2023-08-29] MEDS: CEVIMELINE 30 MG PO SCH ×3 (09:00→21:00)
[2023-08-29] MEDS: SPIRONOLACTONE 12.5MG PER 1/2 TABLET PO SCH (09:00)
[2023-08-29] MEDS: NOXAFIL PO SCH (09:00)
[2023-08-29] MEDS: PENICILLIN V POTASSIUM 500 MG TAB PO SCH ×2 (09:00→21:00)
[2023-08-29] MEDS: SODIUM CHLORIDE 0.9% INJ 10 ML SYR IV SCH (09:08)
[2023-08-29 09:13] LABS: HEMATOCRIT 24.7 % (42.0-52.0); HEMOGLOBIN 7.9 g/dl (13.5-17.5); MEAN CORPUSCULAR HEMOGLOBIN 30.6 pg (27.0-33.0); MEAN CORPUSCULAR VOLUME 95.7 fl (80.0-96.0); RED BLOOD COUNT 2.58 10^6/uL (4.30-6.10); WHITE BLOOD COUNT 2.7 10^3/uL (4.0-10.0)
[2023-08-29 09:15] LABS: PLATELET COUNT, AUTOMATED 15 10^3/uL (150-450)
[2023-08-29 09:52] LABS: ANISOCYTOSIS 2+; EOSINOPHILS 1 % (0-3); LYMPHOCYTES 36 % (16-44); MONOCYTES 9 % (0-5); NEUTROPHILS 51 % (28-66); PLATELET ESTIMATE MARKED DECREASE (NORMAL); POIKILOCYTOSIS 1+
[2023-08-29 09:53] LABS: POLYCHROMASIA 1+; TOXIC VACUOLATION 2+
[2023-08-29 10:08] LABS: ALKALINE PHOSPHATASE 255 U/L (46-116); ALT/SGPT 26 U/L (7.0-40); AST/SGOT 22 U/L (<34); BILIRUBIN,TOTAL 0.6 MG/DL (0.3-1.2); BLOOD UREA NITROGEN 17 MG/DL (9-23); CALCIUM LEVEL 6.1 MG/DL (8.5-10.1); CARBON DIOXIDE LEVEL 23 MMOL/L (20-31); CHLORIDE LEVEL 109 MMOL/L (98-107); GLOMERULAR FILTRATION RATE > 60.0 (>60); GLUCOSE, FASTING 120 MG/DL (60-100); MAGNESIUM LEVEL 1.9 MG/DL (1.8-2.4); POTASSIUM SERUM 3.6 MMOL/L (3.5-5.1); SODIUM LEVEL 140 MMOL/L (136-145); TOTAL PROTEIN 3.5 G/DL (5.7-8.2)
[2023-08-29] MEDS: oxyCODONE 5MG TAB PO SCH ×2 (11:49→18:00)
[2023-08-29] MEDS: SIROLIMUS 1 MG TAB (RAPAMUNE) PO SCH (12:00)
[2023-08-29] MEDS ORDERED: NS 1,000 ML IV ONE (19:10)
[2023-08-29] MEDS ORDERED: NALOXONE INJ 0.4MG/1ML VIAL IV PRN (19:15)
[2023-08-29] MEDS ORDERED: oxyCODONE 5MG TAB PO PRN (19:15)
[2023-08-29] MEDS: SALIVA SUBSTITUTE(MOUTHKOTE) BTL MT SCH (21:00)
[2023-08-29] MEDS: PANTOPRAZOLE 40MG TAB (PROTONIX) PO SCH (21:00)
[2023-08-29] MEDS ORDERED: LIDOCAINE 5% (LIDODERM) PATCH TD SCH (21:00)
[2023-08-29] MEDS: MIRTAZAPINE 7.5MG PER 1/2 TABLET PO SCH (21:00)
[2023-08-29 21:53] LABS: ABG BASE EXCESS -0.5 (-2.0-2.0); ABG O2 SATURATION 97.5 % (95.0-99.0); ABG PARTIAL PRESSURE CO2 33.1 mmHg (35.0-45.0); ABG PARTIAL PRESSURE O2 99.2 mmHg (75.0-100.0); ABG STANDARD HCO3 24.1 MMOL/L. (22.0-26.0); ABG pH (ARTERIAL) 7.459 UNITS (7.350-7.450)
[2023-08-29 21:54] LABS: HEMATOCRIT 21.5 % (42.0-52.0); HEMOGLOBIN 7.1 g/dl (13.5-17.5); MEAN CORPUSCULAR VOLUME 93.9 fl (80.0-96.0); RED BLOOD COUNT 2.29 10^6/uL (4.30-6.10); WHITE BLOOD COUNT 3.2 10^3/uL (4.0-10.0)
[2023-08-29 21:58] LABS: PLATELET COUNT, AUTOMATED 23 10^3/uL (150-450)
[2023-08-30] VITALS (10 sets, daily range): BP systolic 88–110; BP diastolic 50–73; TEMP 98–99.6; O2SAT 94–98
[2023-08-30] MEDS: oxyBUTYnin 5 MG TAB PO SCH ×2 (06:00→14:00)
[2023-08-30 06:54] LABS: HEMATOCRIT 29.8 % (42.0-52.0); MEAN CORPUSCULAR HEMOGLOBIN 30.5 pg (27.0-33.0); MEAN CORPUSCULAR HGB CONC 33.9 g/dl (32.0-36.5); RED BLOOD COUNT 3.31 10^6/uL (4.30-6.10); WHITE BLOOD COUNT 3.8 10^3/uL (4.0-10.0)
[2023-08-30 06:56] LABS: HEMOGLOBIN 10.1 g/dl (13.5-17.5); PLATELET COUNT, AUTOMATED 21 10^3/uL (150-450)
[2023-08-30] MEDS: MIDODRINE 5 MG TAB PO SCH ×3 (08:00→16:00)
[2023-08-30] MEDS: [UNRECOGNIZED DRUG - OTHER] PO SCH (09:00)
[2023-08-30] MEDS: [UNRECOGNIZED DRUG - OTHER] PO SCH ×3 (09:00→16:14)
[2023-08-30] MEDS: PROMACTA 50 MG PO SCH (09:00)
[2023-08-30] MEDS: SALIVA SUBSTITUTE(MOUTHKOTE) BTL MT SCH ×3 (09:00→16:14)
[2023-08-30] MEDS: ACYCLOVIR 200 MG CAPSULE PO SCH (09:00)
[2023-08-30] MEDS: CEVIMELINE 30 MG PO SCH ×2 (09:00→16:00)
[2023-08-30] MEDS: SPIRONOLACTONE 12.5MG PER 1/2 TABLET PO SCH (09:00)
[2023-08-30] MEDS: predniSONE 2.5 MG TAB PO SCH (09:00)
[2023-08-30] MEDS: ursodioL 300MG CAP PO SCH ×2 (09:00→16:00)
[2023-08-30] MEDS: BUDESONIDE EC 3MG CAP (ENTOCORT EC) PO SCH (09:00)
[2023-08-30] MEDS: PENICILLIN V POTASSIUM 500 MG TAB PO SCH (09:00)
[2023-08-30] MEDS: NOXAFIL PO SCH (09:00)
[2023-08-30] MEDS: HYDROCORTISONE 10 MG TAB PO SCH (09:00)
[2023-08-30] MEDS: METHADONE 10MG TAB PO SCH ×3 (09:00→19:03)
[2023-08-30] MEDS: TAMSULOSIN 0.4 MG CAP PO SCH (09:00)
[2023-08-30] MEDS: PARoxetine 20MG TABLET PO SCH (09:00)
[2023-08-30] MEDS: D5W/0.45% SODIUM CHLORIDE 1,000 ML IV SCH (09:10)
[2023-08-30] MEDS: ONDANSETRON 4MG 2ML VIAL IV PRN (09:10)
[2023-08-30] MEDS ORDERED: HYDROMORPHONE HCL 0.5 MG/ 0.5 ML SYRINGE IV ONE (11:00)
[2023-08-30] MEDS ORDERED: NS 500 ML IV ONE (11:00)
[2023-08-30] MEDS: SODIUM CHLORIDE 0.9% INJ 10 ML SYR IV SCH (12:48)
[2023-08-30] MEDS: SIROLIMUS 1 MG TAB (RAPAMUNE) PO SCH (12:49)
== END 2023-08-30 19:00 | disposition short-term general hospital (02) | DRG 660 ==
LOC: M ED 19:01 → M ED INP 08-28 01:16 → M PCU 08-28 03:09
PROVIDERS: ADMIT Internal Medicine; ATTEND General Practice
PROC: 30233R1 Transfusion of Nonautologous Platelets into Peripheral Vein, Percutaneous Approach (ICD-10-PCS; principal; 2023-08-28)
DX: T86.09 Other complications of bone marrow transplant (principal); E43 Unspecified severe protein-calorie malnutrition; B25.9 Cytomegaloviral disease, unspecified; D61.810 Antineoplastic chemotherapy induced pancytopenia; C92.50 Acute myelomonocytic leukemia, not having achieved remission; D89.810 Acute graft-versus-host disease; Z94.81 Bone marrow transplant status; Z94.84 Stem cells transplant status; D69.6 Thrombocytopenia, unspecified; Q87.19 Other congenital malformation syndromes predominantly associated with short stature; E87.5 Hyperkalemia; N13.30 Unspecified hydronephrosis; D64.81 Anemia due to antineoplastic chemotherapy; K20.80 Other esophagitis without bleeding; K21.9 Gastro-esophageal reflux disease without esophagitis; F41.9 Anxiety disorder, unspecified; F90.9 Attention-deficit hyperactivity disorder, unspecified type; F32.A Depression, unspecified; E86.0 Dehydration; R33.9 Retention of urine, unspecified; N20.0 Calculus of kidney; F17.200 Nicotine dependence, unspecified, uncomplicated; Z88.2 Allergy status to sulfonamides; Z88.8 Allergy status to other drugs, medicaments and biological substances; Z79.899 Other long term (current) drug therapy; G89.29 Other chronic pain; Z68.1 Body mass index [BMI] 19.9 or less, adult; Y83.8 Other surgical procedures as the cause of abnormal reaction of the patient, or of later complication, without mention of misadventure at the time of the procedure